=== PATIENT | male | born 1990 | race American Indian/Alaskan Native ===

== ENCOUNTER 2016-10-31 15:27 | Emergency (ER) | payer MEDICARE ==
--- NOTE | 2016-10-31 16:16 | Emergency Department Report ---
ED General Adult HPI - General Chief complaint: Headache Stated complaint: SEVERE HEADACHE Time Seen by Provider: 10/31/16 16:16 Source: patient, EMS Mode of arrival: Stretcher Limitations: No Limitations - History of Present Illness Initial comments: Patient is a 26-year-old male past medical history of end-stage renal disease on dialysis Monday and severe hypertension who presents with headache. Patient was in dialysis today and finished all of his dialysis and afterwards he had a bad headache. The headaches look in on the left side of his head he states it's an 8 out of 10 throbbing pain that radiates across his head. He denies anything making it better or worse. He states that after dialysis he was took him to the ER and brought to [facility]. Patient has no nausea no vomiting. - Related Data Home Medications Medication Instructions Recorded Confirmed Last Taken Benzonatate [Tessalon Perles] 100 mg PO BID 10/31/16 10/31/16 Unknown Cinacalcet HCl [Sensipar] 90 mg PO DAILY 10/31/16 10/31/16 Unknown Clobetasol 0.05% [Temovate] 1 applicatio TP BID 10/31/16 10/31/16 Unknown Ergocalciferol [Vitamin D2] 1 cap PO QWEEK 10/31/16 10/31/16 Unknown Folic Acid [Folvite] 1 mg PO QDAY 10/31/16 10/31/16 Unknown ISOSORBIDE MONOnitrate [Imdur ER] 60 mg PO BID 10/31/16 10/31/16 Unknown LORazepam [Ativan] 0.5 mg PO QDAY 10/31/16 10/31/16 Unknown Losartan [Cozaar] 150 mg PO QDAY 10/31/16 10/31/16 Unknown Metoprolol Succinate 200 mg PO DAILY 10/31/16 10/31/16 Unknown PARoxetine [Paxil] 10 mg PO DAILY 10/31/16 10/31/16 Unknown Pilocarpine HCl 5 mg PO TID 10/31/16 10/31/16 Unknown Renal-Primo Tablet 0.8 mg PO DAILY 10/31/16 10/31/16 10/30/16 Sucroferric Oxyhydroxide [Velphoro] 1,000 mg PO TID 10/31/16 10/31/16 Unknown amLODIPine [Norvasc] 10 mg PO DAILY 10/31/16 10/31/16 Unknown hydrALAZINE [Apresoline TAB] 100 mg PO QID 10/31/16 10/31/16 10/30/16 traZODone [Desyrel] 50 mg PO QHS 10/31/16 10/31/16 Unknown Previous Rx's Medication Instructions Recorded Last Taken Type Butalb/Acetamin/Caff 50-325-40 1 tab PO Q8HR PRN #13 tablet 10/31/16 Unknown Rx [Fioricet] Allergies Allergy/AdvReac Type Severity Reaction Status Date / Time No Known Allergies Allergy Unverified 10/31/16 15:43 ED Review of Systems ROS: Stated complaint: SEVERE HEADACHE Other details as noted in HPI Constitutional: denies: chills, fever Eyes: denies: eye pain, eye discharge, vision change ENT: denies: ear pain, throat pain Respiratory: denies: cough, shortness of breath, wheezing Cardiovascular: denies: chest pain, palpitations Endocrine: no symptoms reported Gastrointestinal: denies: abdominal pain, nausea, diarrhea Genitourinary: denies: urgency, dysuria Musculoskeletal: denies: back pain, joint swelling, arthralgia Skin: denies: rash, lesions Neurological: headache. denies: weakness, paresthesias Psychiatric: denies: anxiety, depression Hematological/Lymphatic: denies: easy bleeding, easy bruising ED Past Medical Hx - Past Medical History Previous Medical History?: Yes Hx Hypertension: Yes Additional medical history: anxiety - Surgical History Past Surgical History?: Yes Additional Surgical History: Left arm graft, hx left arm fistula - Social History Smoking Status: Former Smoker Substance Use Type: Alcohol, Prescribed - Medications Home Medications: Home Medications Medication Instructions Recorded Confirmed Last Taken Type Benzonatate [Tessalon Perles] 100 mg PO BID 10/31/16 10/31/16 Unknown History Butalb/Acetamin/Caff 50-325-40 1 tab PO Q8HR PRN #13 tablet 10/31/16 Unknown Rx [Fioricet] Cinacalcet HCl [Sensipar] 90 mg PO DAILY 10/31/16 10/31/16 Unknown History Clobetasol 0.05% [Temovate] 1 applicatio TP BID 10/31/16 10/31/16 Unknown History Ergocalciferol [Vitamin D2] 1 cap PO QWEEK 10/31/16 10/31/16 Unknown History Folic Acid [Folvite] 1 mg PO QDAY 10/31/16 10/31/16 Unknown History ISOSORBIDE MONOnitrate [Imdur ER] 60 mg PO BID 10/31/16 10/31/16 Unknown History LORazepam [Ativan] 0.5 mg PO QDAY 10/31/16 10/31/16 Unknown History Losartan [Cozaar] 150 mg PO QDAY 10/31/16 10/31/16 Unknown History Metoprolol Succinate 200 mg PO DAILY 10/31/16 10/31/16 Unknown History PARoxetine [Paxil] 10 mg PO DAILY 10/31/16 10/31/16 Unknown History Pilocarpine HCl 5 mg PO TID 10/31/16 10/31/16 Unknown History Renal-Primo Tablet 0.8 mg PO DAILY 10/31/16 10/31/16 10/30/16 History Sucroferric Oxyhydroxide [Velphoro] 1,000 mg PO TID 10/31/16 10/31/16 Unknown History amLODIPine [Norvasc] 10 mg PO DAILY 10/31/16 10/31/16 Unknown History hydrALAZINE [Apresoline TAB] 100 mg PO QID 10/31/16 10/31/16 10/30/16 History traZODone [Desyrel] 50 mg PO QHS 10/31/16 10/31/16 Unknown History ED Physical Exam - General Limitations: No Limitations General appearance: alert, in no apparent distress - Head Head exam: Present: atraumatic, normocephalic - Eye Eye exam: Present: normal appearance - ENT ENT exam: Present: mucous membranes moist - Neck Neck exam: Present: normal inspection - Respiratory Respiratory exam: Present: normal lung sounds bilaterally. Absent: respiratory distress - Cardiovascular Cardiovascular Exam: Present: regular rate, normal rhythm. Absent: systolic murmur, diastolic murmur, rubs, gallop - GI/Abdominal GI/Abdominal exam: Present: soft, normal bowel sounds - Rectal Rectal exam: Present: deferred - Extremities Exam Extremities exam: Present: other (left AV fistula) - Back Exam Back exam: Present: normal inspection - Neurological Exam Neurological exam: Present: alert, oriented X3 - Psychiatric Psychiatric exam: Present: normal affect, normal mood - Skin Skin exam: Present: warm, dry, intact, normal color. Absent: rash ED Course Vital Signs 10/31/16 10/31/16 10/31/16 15:36 15:43 15:46 Temperature 98.3 F Pulse Rate 109 H 108 H Respiratory 24 8 L Rate Blood Pressure 144/78 139/66 Blood Pressure [Right] O2 Sat by Pulse 100 100 79 L Oximetry 10/31/16 10/31/16 10/31/16 16:00 16:15 16:30 Temperature Pulse Rate 104 H 108 H 105 H Respiratory 13 18 20 Rate Blood Pressure 139/66 126/54 126/54 Blood Pressure [Right] O2 Sat by Pulse 95 99 92 Oximetry 10/31/16 10/31/16 10/31/16 16:45 17:00 17:16 Temperature Pulse Rate 110 H 108 H 101 H Respiratory 18 14 18 Rate Blood Pressure 142/41 142/41 164/95 Blood Pressure [Right] O2 Sat by Pulse 99 100 100 Oximetry 10/31/16 10/31/16 10/31/16 17:19 17:30 17:46 Temperature Pulse Rate 108 H 109 H Respiratory 20 13 17 Rate Blood Pressure 175/91 139/68 Blood Pressure [Right] O2 Sat by Pulse 100 100 100 Oximetry 10/31/16 10/31/16 10/31/16 18:00 18:05 18:16 Temperature Pulse Rate 104 H 113 H Respiratory 12 18 20 Rate Blood Pressure 139/68 124/61 Blood Pressure [Right] O2 Sat by Pulse 100 99 Oximetry 10/31/16 19:10 Temperature 98.3 F Pulse Rate 110 H Respiratory 18 Rate Blood Pressure Blood Pressure 114/69 [Right] O2 Sat by Pulse 98 Oximetry ED Medical Decision Making - Lab Data Result diagrams: 10/31/16 17:55 10/31/16 17:55 Lab Results 10/31/16 10/31/16 Range/Units 17:55 17:55 WBC 8.9 (4.5-11.0) K/mm3 RBC 3.61 L (3.65-5.03) M/mm3 Hgb 11.3 L (11.8-15.2) gm/dl Hct 33.5 L (35.5-45.6) % MCV 93 (84-94) fl MCH 31 (28-32) pg MCHC 34 (32-34) % RDW 16.8 H (13.2-15.2) % Plt Count 243 (140-440) K/mm3 Lymph % (Auto) 13.4 (13.4-35.0) % [place] % (Auto) 8.2 H (0.0-7.3) % Eos % (Auto) 5.1 H (0.0-4.3) % Baso % (Auto) 0.7 (0.0-1.8) % Lymph # 1.2 (1.2-5.4) K/mm3 [place] # 0.7 (0.0-0.8) K/mm3 Eos # 0.5 H (0.0-0.4) K/mm3 Baso # 0.1 (0.0-0.1) K/mm3 Seg Neutrophils % 72.6 H (40.0-70.0) % Seg Neutrophils # 6.5 (1.8-7.7) K/mm3 Sodium 141 (137-145) mmol/L Potassium 4.4 (3.6-5.0) mmol/L Chloride 96.2 L (98-107) mmol/L Carbon Dioxide 29 (22-30) mmol/L Anion Gap 20 mmol/L BUN 33 H (9-20) mg/dL Creatinine 9.1 H (0.8-1.5) mg/dL Estimated GFR 9 ml/min BUN/Creatinine Ratio 3.62 % Glucose 83 (75-100) mg/dL Calcium 9.7 (8.4-10.2) mg/dL - Medical Decision Making Chief medical diagnosis: Tension headache Differential medical diagnosis: Migraine headache, hyperkalemia, hypokalemia, postdialysis headache CBC, CMP, oral analgesic pain medication and will reevaluate patient Patient is feeling better after the oral analgesic pain medication and his headache has subsided. Engaged to ensure decision-making I will send patient home to follow-up with his external relations director. Additional verbal discharge instructions were given patient agrees with plan. Critical care attestation.: If time is entered above; I have spent that time in minutes in the direct care of this critically ill patient, excluding procedure time. ED Disposition Clinical Impression: ESRD (end stage renal disease), Tension headache HTN (hypertension) Qualifiers: Hypertension type: essential hypertension Qualified Code(s): I10 - Essential ( primary) hypertension Disposition: DC-01 TO HOME OR SELFCARE Is pt being admited?: No Does the pt Need Aspirin: No Condition: Stable Instructions: Tension Headache (ED), Hypertension (ED) Additional Instructions: Please follow-up with your Web Marketing Analyst. Prescriptions: Butalb/Acetamin/Caff 50-325-40 [Fioricet] 1 tab PO Q8HR PRN #13 tablet PRN Reason: Headache Referrals: PRIMARY CARE, [Primary Care Provider] - 3-5 Days
[2016-10-31] MEDS ORDERED: ATIVAN PO ONE (16:56)
[2016-10-31] MEDS ORDERED: FIORICET PO ONE (17:24)
[2016-10-31] MEDS ORDERED: PERCOCET 5/325 PO ONE (17:41)
[2016-10-31 18:09] LABS: Basophils % (Auto) 0.7 % (0.0-1.8); Eosinophils % (Auto) 5.1 % (0.0-4.3); Hematocrit 33.5 % (35.5-45.6); Hemoglobin 11.3 gm/dl (11.8-15.2); Mean Corpuscular HGB Conc 34 % (32-34); Mean Corpuscular Hemoglobin 31 pg (28-32); Mean Corpuscular Volume 93 fl (84-94); Platelet Count 243 K/mm3 (140-440); Red Blood Count 3.61 M/mm3 (3.65-5.03); Red Cell Distribution Width 16.8 % (13.2-15.2); White Blood Count 8.9 K/mm3 (4.5-11.0)
[2016-10-31 18:28] LABS: BUN/Creatinine Ratio 3.62; Calcium 9.7 mg/dL (8.4-10.2); Chloride 96.2 mmol/L (98-107); Potassium 4.4 mmol/L (3.6-5.0)
[2016-10-31 19:17] VITALS: BP 114/69
== END 2016-10-31 19:11 | disposition home or self-care (01) ==
LOC: ED 15:27
DX: G44.209 Tension-type headache, unspecified, not intractable (principal); I10 Essential (primary) hypertension; I12.0 Hypertensive chronic kidney disease with stage 5 chronic kidney disease or end stage renal disease; N18.6 End stage renal disease; Z87.891 Personal history of nicotine dependence
CPT/HCPCS: 36415; 80048; 85025; 99284

== ENCOUNTER 2018-05-02 16:19 | Inpatient (IN) | payer MEDICARE ==
--- NOTE | 2018-05-02 17:33 | Emergency Department Report ---
HPI - General Chief Complaint: Chest Pain Time Seen by Provider: 05/02/18 17:13 - HPI HPI: Room 5 The patient is a 28-year-old male presenting with a chief complaint of palpitations. The patient states he was at hemodialysis receiving this treatment when he had approximately 30 minutes left. Patient states he notices heart rate became elevated in the 150s-160s. This was persistent so the patient was taken off of hemodialysis and eventually EMS was called. EMS had the patient perform vagal maneuvers with eventual break of SVT. Patient's heart r ate normalized to the 90s after maneuvers. Patient denied ever having chest pain, shortness breath or dizziness during the palpitations. Patient states he has never been formally evaluated for SVT Location: [See above] Duration: [See above] Quality: [See above] Severity: [See above] Modifying factors: [see above] Context: [see above] Mode of transportation: [not driving] ED Past Medical Hx - Past Medical History Previous Medical History?: Yes Hx Hypertension: Yes Hx Renal Disease: Yes (ESRD. HD Q MWF) Additional medical history: anxiety - Surgical History Past Surgical History?: Yes Additional Surgical History: Left arm graft, hx left arm fistula, keloid removals, renal biopsy - Family History Family history: no significant - Social History Smoking Status: Former Smoker (none 6 years) Substance Use Type: None (denies illicit drug use), Alcohol (occasional) - Medications Home Medications: Home Medications Medication Instructions Recorded Confirmed Last Taken Type Benzonatate [Tessalon Perles] 100 mg PO BID 10/31/16 10/31/16 Unknown History Butalb/Acetamin/Caff 50-325-40 1 tab PO Q8HR PRN #13 tablet 10/31/16 Unknown Rx [Fioricet] Cinacalcet HCl [Sensipar] 90 mg PO DAILY 10/31/16 10/31/16 Unknown History Clobetasol 0.05% [Temovate] 1 applicatio TP BID 10/31/16 10/31/16 Unknown History Ergocalciferol [Vitamin D2] 1 cap PO QWEEK 10/31/16 10/31/16 Unknown History Folic Acid [Folvite] 1 mg PO QDAY 10/31/16 10/31/16 Unknown History ISOSORBIDE MONOnitrate [Imdur ER] 60 mg PO BID 10/31/16 10/31/16 Unknown History LORazepam [Ativan] 0.5 mg PO QDAY 10/31/16 10/31/16 Unknown History Losartan [Cozaar] 150 mg PO QDAY 10/31/16 10/31/16 Unknown History Metoprolol Succinate 200 mg PO DAILY 10/31/16 10/31/16 Unknown History PARoxetine [Paxil] 10 mg PO DAILY 10/31/16 10/31/16 Unknown History Pilocarpine HCl 5 mg PO TID 10/31/16 10/31/16 Unknown History Renal-Primo Tablet 0.8 mg PO DAILY 10/31/16 10/31/16 10/30/16 History Sucroferric Oxyhydroxide(Nf) 1,000 mg PO TID 10/31/16 10/31/16 Unknown History [Velphoro] amLODIPine [Norvasc] 10 mg PO DAILY 10/31/16 10/31/16 Unknown History hydrALAZINE [Apresoline TAB] 100 mg PO QID 10/31/16 10/31/16 10/30/16 History traZODone [Desyrel] 50 mg PO QHS 10/31/16 10/31/16 Unknown History ED Review of Systems ROS: Stated complaint: FAST HEART BEAT Other details as noted in HPI Constitutional: no symptoms reported Eyes: denies: eye pain ENT: denies: throat pain Respiratory: denies: shortness of breath Cardiovascular: palpitations. denies: chest pain Endocrine: no symptoms reported Gastrointestinal: denies: abdominal pain Genitourinary: denies: testicular pain Musculoskeletal: denies: back pain Neurological: denies: headache Physical Exam - Physical Exam Vital Signs: Vital Signs 05/02/18 16:27 Temperature 98.8 F Pulse Rate 105 H Respiratory 18 Rate Blood Pressure 163/98 O2 Sat by Pulse 100 Oximetry Physical Exam: GENERAL: The patient is well-developed well-nourished male lying on stretcher not appearing to be in acute distress. [] HEENT: Normocephalic. Atraumatic. Extraocular motions are intact. Patient has moist mucous membranes. NECK: Supple. Trachea midline CHEST/LUNGS: Clear to auscultation. There is no respiratory distress noted. HEART/CARDIOVASCULAR: Regular. There is no tachycardia. There is no gallop rub or murmur. ABDOMEN: Abdomen is soft, nontender. Patient has normal bowel sounds. There is no abdominal distention. SKIN: There is no rash. There is no edema. There is no diaphoresis. NEURO: The patient is awake, alert, and oriented. The patient is cooperative. The patient has normal speech MUSCULOSKELETAL: There is no evidence of acute injury. ED Course Vital Signs 05/02/18 16:27 Temperature 98.8 F Pulse Rate 105 H Respiratory 18 Rate Blood Pressure 163/98 O2 Sat by Pulse 100 Oximetry ED Medical Decision Making - Lab Data Result diagrams: 05/02/18 17:33 05/02/18 17:33 Laboratory Tests 05/02/18 05/02/18 05/02/18 17:33 17:33 17:33 WBC 8.9 RBC 3.85 Hgb 12.3 Hct 37.4 MCV 97 H MCH 32 MCHC 33 RDW 19.1 H Plt Count 252 Lymph % (Auto) 15.0 [place] % (Auto) 8.6 H Eos % (Auto) 3.5 Baso % (Auto) 0.7 Lymph # 1.3 [place] # 0.8 Eos # 0.3 Baso # 0.1 Seg Neutrophils % 72.2 H Seg Neutrophils # 6.4 Sodium 137 Potassium 4.4 Chloride 92.9 L Carbon Dioxide 29 Anion Gap 20 BUN 26 H Creatinine 8.0 H Estimated GFR 10 BUN/Creatinine Ratio 3 Glucose 83 Calcium 9.0 Magnesium 2.20 Troponin T 0.059 H TSH 1.300 Free T4 1.32 - EKG Data -: EKG Interpreted by Me EKG shows normal: sinus rhythm Rate: normal - EKG Data When compared to previous EKG there are: previous EKG unavailable Interpretation: nonspecific ST-T wave rakel (T-wave inversion in lead aVL) - Radiology Data Radiology results: report reviewed (chest x-ray), image reviewed (chest x-ray) interpreted by me: Chest x-ray-no focal infiltrates, no pneumothorax [facility] [address] [place] [address] XRay Report Signed Patient: SHAYE ZHANG MR#: [id number] : 1990 Acct:[id number] Age/Sex: 28 / M ADM Date: 05/02/18 Loc: ED Attending Dr: Ordering Physician: WELLINGTON FRANKS MD Date of Service: 05/02/18 Procedure(s): XR chest 1V ap Accession Number(s): [id number] cc: WELLINGTON FRANKS MD Fluoro Time In Minutes: PROCEDURE: XR CHEST 1V AP HISTORY: palpitations FINDINGS: Single frontal view of the chest was acquired and demonstrates the presence of cardiomegaly. There is no evidence of congestive heart failure. There is no consolidative infiltrate. IMPRESSION: Cardiomegaly This document is electronically signed by Jatinder Joseph MD., May 02 2018 06:23:45 PM ET Transcribed By: ROD Dictated By: JATINDER JOSEPH MD Electronically Authenticated By: JATINDER JOSEPH MD Signed Date/Time: 05/02/181825 DD/ 57 TD/TT: 05/02/181757 - Differential Diagnosis SVT Critical care attestation.: If time is entered above; I have spent that time in minutes in the direct care o f this critically ill patient, excluding procedure time. ED Disposition Clinical Impression: SVT (supraventricular tachycardia) Disposition: -09 OP ADMIT IP TO THIS HOSP Is pt being admited?: Yes Does the pt Need Aspirin: Yes Condition: Fair [facility] [Primary Care Provider] - 3-5 Days Time of Disposition: 18:51 (hospitalist paged (Dr Arreola))
[2018-05-02 17:58] LABS: Basophils # (Auto) 0.1 K/mm3 (0.0-0.1); Basophils % (Auto) 0.7 % (0.0-1.8); Eosinophils # (Auto) 0.3 K/mm3 (0.0-0.4); Eosinophils % (Auto) 3.5 % (0.0-4.3); Hematocrit 37.4 % (35.5-45.6); Hemoglobin 12.3 gm/dl (11.8-15.2); Lymphocytes # (Auto) 1.3 K/mm3 (1.2-5.4); Mean Corpuscular HGB Conc 33 % (32-34); Mean Corpuscular Volume 97 fl (84-94); Monocytes # (Auto) 0.8 K/mm3 (0.0-0.8); Monocytes % (Auto) 8.6 % (0.0-7.3); Platelet Count 252 K/mm3 (140-440); Red Blood Count 3.85 M/mm3 (3.65-5.03); Red Cell Distribution Width 19.1 % (13.2-15.2)
[2018-05-02 18:22] LABS: Free T4 (Free Thyroxine) 1.32 ng/dL (0.76-1.46)
--- NOTE | 2018-05-02 18:26 | XRay Report ---
PROCEDURE: XR CHEST 1V AP HISTORY: palpitations FINDINGS: Single frontal view of the chest was acquired and demonstrates the presence of cardiomegaly . There is no evidence of congestive heart failure. There is no consolidative infiltrate. IMPRESSION: Cardiomegaly This document is electronically signed by Jatinder Joseph MD., May 02 2018 06:23:45 PM ET
[2018-05-02 19:10] LABS: Chol/HDL Ratio 4.31 %
[2018-05-02] MEDS ORDERED: PILOCARPINE HCL 5 MG PO PRN (22:43)
--- NOTE | 2018-05-02 22:43 | History and Physical Report ---
History of Present Illness Date of examination: 05/02/18 Date of admission: 05/02/18 19:28 Chief complaint: Palpitations during Dialysis History of present illness: The patient is a 28-year-old male presenting with a chief complaint of palpitations. The patient states he was at hemodialysis receiving this treatment when he had approximately 30 minutes left. Patient states he notices heart rate became elevated in the 150s-160s. This was persistent so the patient was taken off of hemodialysis and eventually EMS was called. EMS had the patient perform vagal maneuvers with eventual break of SVT. Patient's heart rate normalized to the 90s after maneuvers. Patient denied ever having chest pain, shortness breath or dizziness during the palpitations. Patient states he has never been formally evaluated for SVT Past Medical History Previous Medical History?: Yes Hx Hypertension: Yes Hx Renal Disease: Yes (ESRD. HD Q MWF) Additional medical history: anxiety Surgical History Past Surgical History?: Yes Additional Surgical History: Left arm graft, hx left arm fistula, keloid removals, renal biopsy Family History Family history: no significant Social History Smoking Status: Former Smoker (none 6 years) Substance Use Type: None (denies illicit drug use), Alcohol (occasional) Review of Systems ROS: Stated complaint: FAST HEART BEAT Other details as noted in HPI Constitutional: no symptoms reported Eyes: denies: eye pain ENT: denies: throat pain Respiratory: denies: shortness of breath Cardiovascular: palpitations. denies: chest pain Endocrine: no symptoms reported Gastrointestinal: denies: abdominal pain Genitourinary: denies: testicular pain Musculoskeletal: denies: back pain Neurological: denies: headache Medications and Allergies Allergies Allergy/AdvReac Type Severity Reaction Status Date / Time No Known Allergies Allergy Verified 05/02/18 16:31 Home Medications Medication Instructions Recorded Confirmed Last Taken Type Benzonatate [Tessalon Perles] 100 mg PO BID 10/31/16 05/02/18 05/02/18 History Ergocalciferol [Vitamin D2] 1 cap PO QWEEK 10/31/16 05/02/18 05/02/18 History ISOSORBIDE MONOnitrate [Imdur ER] 60 mg PO BID 10/31/16 05/02/18 05/02/18 Hist ory PARoxetine [Paxil] 10 mg PO QHS 10/31/16 05/02/1819 History Pilocarpine HCl 5 mg PO TID PRN 10/31/16 05/02/18 05/02/18 History amLODIPine [Norvasc] 10 mg PO QHS 10/31/16 05/02/18 05/02/18 History hydrALAZINE [Apresoline TAB] 100 mg PO BID 10/31/16 05/02/18 05/02/18 History Ferric Citrate (Nf) [Auryxia (Nf)] 210 mg PO QID 05/02/18 05/02/18 05/02/18 History Losartan Potassium 100 mg PO DAILY 05/02/18 05/02/18 05/02/18 History Minoxidil [Loniten] 10 mg PO BID 05/02/18 05/02/18 05/02/18 History Sevelamer Carbonate [Renvela] 3 tab PO QID 05/02/18 05/02/18 04/25/18 History Metoprolol SUCCINATE ER TAB 200 mg PO QHS 05/03/18 05/03/18 04/30/18 History Exam - Constitutional Vitals: Temp Pulse Resp BP Pulse Ox 98.8 F 102 H 19 177/89 96 05/02/18 16:27 05/02/18 19:31 05/02/18 19:31 05/02/18 19:31 05/02/18 19:31 General appearance: Present: no acute distress, well-nourished - EENT Eyes: Present: PERRL ENT: hearing intact, clear oral mucosa - Neck Neck: Present: supple, normal ROM - Respiratory Respiratory effort: normal Respiratory: bilateral: CTA - Cardiovascular Heart Sounds: Present: S1 & S2. Absent: rub, click - Extremities Extremities: pulses symmetrical, No edema Peripheral Pulses: within normal limits - Abdominal General gastrointestinal: Present: soft, non-tender, non-distended, normal bowel sounds Male genitourinary: Present: normal - Integumentary Integumentary: Present: clear, warm, dry - Musculoskeletal Musculoskeletal: gait normal, strength equal bilaterally - Psychiatric Psychiatric: appropriate mood/affect, intact judgment & insight - Neurologic Neurologic: CNII-XII intact, moves all extremities Results - Labs CBC & Chem 7: 05/03/18 04:46 05/03/18 04:46 Labs: Laboratory Last Values WBC 8.9 K/mm3 (4.5-11.0) 05/02/18 17:33 RBC 3.85 M/mm3 (3.65-5.03) 05/02/18 17:33 Hgb 12.3 gm/dl (11.8-15.2) 05/02/18 17:33 Hct 37.4 % (35.5-45.6) 05/02/18 17:33 MCV 97 fl (84-94) H 05/02/18 17:33 MCH 32 pg (28-32) 05/02/18 17:33 MCHC 33 % (32-34) 05/02/18 17:33 RDW 19.1 % (13.2-15.2) H 05/02/18 17:33 Plt Count 252 K/mm3 (140-440) 05/02/18 17:33 Lymph % (Auto) 15.0 % (13.4-35.0) 05/02/18 17:33 [place] % (Auto) 8.6 % (0.0-7.3) H 05/02/18 17:33 Eos % (Auto) 3.5 % (0.0-4.3) 05/02/18 17:33 Baso % (Auto) 0.7 % (0.0-1.8) 05/02/18 17:33 Lymph # 1.3 K/mm3 (1.2-5.4) 05/02/18 17:33 [place] # 0.8 K/mm3 (0.0-0.8) 05/02/18 17:33 Eos # 0.3 K/mm3 (0.0-0.4) 05/02/18 17:33 Baso # 0.1 K/mm3 (0.0-0.1) 05/02/18 17:33 Seg Neutrophils % 72.2 % (40.0-70.0) H 05/02/18 17:33 Seg Neutrophils # 6.4 K/mm3 (1.8-7.7) 05/02/18 17:33 Sodium 137 mmol/L (137-145) 05/02/18 17:33 Potassium 4.4 mmol/L (3.6-5.0) 05/02/18 17:33 Chloride 92.9 mmol/L (98-107) L 05/02/18 17:33 Carbon Dioxide 29 mmol/L (22-30) 05/02/18 17:33 Anion Gap 20 mmol/L 05/02/18 17:33 BUN 26 mg/dL (9-20) H 05/02/18 17:33 Creatinine 8.0 mg/dL (0.8-1.5) H 05/02/18 17:33 Estimated GFR 10 ml/min 05/02/18 17:33 BUN/Creatinine Ratio 3 % 05/02/18 17:33 Glucose 83 mg/dL (75-100) 05/02/18 17:33 Calcium 9.0 mg/dL (8.4-10.2) 05/02/18 17:33 Magnesium 2.20 mg/dL (1.7-2.3) 05/02/18 17:33 Troponin T 0.059 ng/mL (0.00-0.029) H 05/02/18 17:33 Triglycerides 119 mg/dL (2-149) 05/02/18 17:33 Cholesterol 194 mg/dL (50-199) 05/02/18 17:33 LDL Cholesterol Direct 142 mg/dL (50-130) H 05/02/18 17:33 HDL Cholesterol 45 mg/dL (40-59) 05/02/18 17:33 Cholesterol/HDL Ratio 4.31 % 05/02/18 17:33 TSH 1.300 mlU/mL (0.270-4.200) 05/02/18 17:33 Free T4 1.32 ng/dL (0.76-1.46) 05/02/18 17:33 Short CBC 05/02/18 05/03/18 Range/Units 17:33 04:46 WBC 8.9 8.0 (4.5-11.0) K/mm3 Hgb 12.3 12.7 (11.8-15.2) gm/dl Hct 37.4 39.1 (35.5-45.6) % Plt Count 252 238 (140-440) K/mm3 BMP 05/02/18 05/03/18 17:33 04:46 Sodium 137 141 Potassium 4.4 5.8 H D Chloride 92.9 L 94.2 L Carbon Dioxide 29 29 BUN 26 H 38 H Creatinine 8.0 H 10.2 H Glucose 83 78 Calcium 9.0 8.5 Cardiac Enzymes 05/02/18 Range/Units 17:33 Troponin T 0.059 H (0.00-0.029) ng/mL Liver Function 05/03/18 Range/Units 04:46 Total Bilirubin 0.30 (0.1-1.2) mg/dL AST 13 (5-40) units/L ALT 11 (7-56) units/L Alkaline Phosphatase 85 (35-129) units/L Albumin 3.9 (3.9-5) g/dL - Imaging and Cardiology EKG: report reviewed (SVT on EMS strips,EKG in ER Sinus tach HR of 104) Chest x-ray: report reviewed (NAF) Assessment and Plan Advance Directives: Yes (Full code) VTE prophylaxis?: Chemical Plan of care discussed with patient/family: Yes - Patient Problems (1) SVT (supraventricular tachycardia) Current Visit: Yes Status: Acute Plan to address problem: Resolved with vagal maneuvers Willrequest cardiology consult May candice low dose cardizembeta blockers Will defer to cardiology (2) ESRD on hemodialysis Current Visit: Yes Status: Chronic Plan to address problem: Nephrology consult requested Due for HD on Monday Had one on Monday-day of admission (3) HTN (hypertension) Current Visit: Yes Status: Chronic Qualifiers: Hypertension type: essential hypertension Qualified Code(s): I10 - Essential (primary) hypertension Plan to address problem: Cont antihypertensives (4) DVT prophylaxis Current Visit: Yes Status: Acute Plan to address problem: On Lovenox and GI prophlaxis
[2018-05-02] MEDS ORDERED: ZOFRAN IV PRN (22:44)
[2018-05-02] MEDS ORDERED: DILAUDID IV PRN (22:44)
[2018-05-02] MEDS ORDERED: TYLENOL PO PRN (22:44)
[2018-05-02] MEDS ORDERED: PERCOCET 5/325 PO PRN (22:44)
[2018-05-02] MEDS ORDERED: SODIUM CHLORIDE FLUSH SYRINGE 10 ML IV PRN (22:44)
[2018-05-02] MEDS: LONITEN PO SCH (23:50)
[2018-05-02] MEDS: HEPARIN SUB-Q SCH (23:50)
[2018-05-02] MEDS: PEPCID PO SCH (23:50)
[2018-05-02] MEDS: APRESOLINE PO SCH (23:50)
[2018-05-03 06:13] LABS: Basophils # (Auto) 0.1 K/mm3 (0.0-0.1); Basophils % (Auto) 0.8 % (0.0-1.8); Eosinophils # (Auto) 0.4 K/mm3 (0.0-0.4); Eosinophils % (Auto) 5.1 % (0.0-4.3); Hematocrit 39.1 % (35.5-45.6); Hemoglobin 12.7 gm/dl (11.8-15.2); Lymphocytes # (Auto) 1.2 K/mm3 (1.2-5.4); Lymphocytes % (Auto) 15.5 % (13.4-35.0); Mean Corpuscular HGB Conc 33 % (32-34); Mean Corpuscular Volume 99 fl (84-94); Monocytes # (Auto) 0.7 K/mm3 (0.0-0.8); Monocytes % (Auto) 8.5 % (0.0-7.3); Platelet Count 238 K/mm3 (140-440); Red Blood Count 3.97 M/mm3 (3.65-5.03); Red Cell Distribution Width 19.6 % (13.2-15.2)
[2018-05-03 06:40] LABS: Albumin 3.9 g/dL (3.9-5); Calcium 8.5 mg/dL (8.4-10.2)
[2018-05-03] MEDS: RENVELA PO SCH ×2 (08:37→12:57)
--- NOTE | 2018-05-03 09:48 | Consultation ---
History of Present Illness - Reason for Consult Consult date: 05/03/18 end stage renal disease, hyperkalemia - History of Present Illness This is a 28 year old male who presents to the E.R yesterday with a chief complaint of having elevated heart rate in the 150's during the last 30 minutes into his hemodialysis treatment. Patient states he still completed his hemodialysis treatment. Patient has history of Hypertension and ESRD and is being followed by Dr. Mariscal ant [facility]. On hemodialysis for 8 years now and has a left AVG. Today his potassium level is noted to be 5.8. We are being consulted for management of this patient's ESRD. Past History Past Medical History: anemia, dialysis, ESRD, hypertension, renal failure. denies: acute PA, atrial fib, arrhythmia Past Surgical History: Other (Left AVG placement) Social history: no significant social history Family history: no significant family history Medications and Allergies Allergies Allergy/AdvReac Type Severity Reaction Status Date / Time No Known Allergies Allergy Verified 05/02/18 16:31 Home Medications Medication Instructions Recorded Confirmed Last Taken Type Benzonatate [Tessalon Perles] 100 mg PO BID 10/31/16 05/02/18 05/02/18 History Ergocalciferol [Vitamin D2] 1 cap PO QWEEK 10/31/16 05/02/18 05/02/18 History ISOSORBIDE MONOnitrate [Imdur ER] 60 mg PO BID 10/31/16 05/02/18 05/02/18 History PARoxetine [Paxil] 10 mg PO QHS 10/31/16 05/02/18 05/02/18 History Pilocarpine HCl 5 mg PO TID PRN 10/31/16 05/02/18 05/02/18 History amLODIPine [Norvasc] 10 mg PO QHS 10/31/16 05/02/18 05/02/18 History hydrALAZINE [Apresoline TAB] 100 mg PO BID 10/31/16 05/02/18 05/02/18 History Ferric Citrate (Nf) [Auryxia (Nf)] 210 mg PO QID 05/02/18 05/02/18 05/02/18 History Losartan Potassium 100 mg PO DAILY 05/02/18 05/02/18 05/02/18 History Minoxidil [Loniten] 10 mg PO BID 05/02/18 05/02/18 05/02/18 History Sevelamer Carbonate [Renvela] 3 tab PO QID 05/02/18 05/02/18 04/25/18 History Metoprolol SUCCINATE ER TAB 200 mg PO QHS 05/03/18 05/03/18 04/30/18 History Active Meds: Active Medications Acetaminophen (Tylenol) 650 mg PO Q4H PRN PRN Reason: Pain MILD(1-3)/Fever >100.5/[place] Amlodipine Besylate (Norvasc) 10 mg PO QHS [facility] Famotidine (Pepcid) 10 mg PO BID [facility] Last Admin: 05/02/18 23:50 Dose: 10 mg Documented by: Heparin Sodium (Porcine) (Heparin) 5,000 unit SUB-Q Q12HR [facility] Last Admin: 05/02/18 23:50 Dose: Not Given Documented by: Hydralazine HCl (Apresoline) 100 mg PO BID [facility] Last Admin: 05/02/18 23:50 Dose: 100 mg Documented by: Hydromorphone HCl (Dilaudid) 0.5 mg IV Q3H PRN PRN Reason: Pain , Severe (7-10) Isosorbide Mononitrate (Imdur) 60 mg PO BID [facility] Losartan Potassium (Cozaar) 100 mg PO DAILY [facility] Minoxidil (Loniten) 10 mg PO BID [facility] Last Admin: 05/02/18 23:50 Dose: 10 mg Documented by: Miscellaneous Medication (Pilocarpine Hcl [Pilocarpine Hcl]) 5 mg PO TID PRN PRN Reason: Dry Mouth Miscellaneous Medication (Metoprolol Succinate Er Tab) 200 mg PO QHS [facility] Ondansetron HCl (Zofran) 4 mg IV Q8H PRN PRN Reason: Nausea And Vomiting Oxycodone/Acetaminophen (Percocet 5/325) 1 tab PO Q6H PRN PRN Reason: Pain, Moderate (4-6) Paroxetine HCl (Paxil) 10 mg PO QHS [facility] Sevelamer Carbonate (Renvela) 2,400 mg PO 0730,1130,1730,2200 [facility] Last Admin: 05/03/18 08:37 Dose: 2,400 mg Documented by: Sodium Chloride (Sodium Chloride Flush Syringe 10 Ml) 10 ml IV BID [facility] Sodium Chloride (Sodium Chloride Flush Syringe 10 Ml) 10 ml IV PRN PRN PRN Reason: LINE FLUSH Review of Systems Constitutional: no weight loss, no weight gain, no fever, no chills Ears, nose, mouth and throat: no ear pain, no ear discharge, no tinnitis, no de creased hearing Cardiovascular: palpitations, rapid/irregular heart beat, no chest pain, no orthopnea Respiratory: no cough with sputum, no excessive sputum, no shortness of breath, no dyspnea on exertion Gastrointestinal: no abdominal pain, no nausea, no vomiting, no diarrhea, no constipation Rectal: no pain, no incontinence, no bleeding Musculoskeletal: no neck stiffness, no neck pain, no shooting arm pain, no arm numbness/tingling, no low back pain, no shooting leg pain Integumentary: no rash, no pruritis, no redness, no sores, no wounds, no jaundice Neurological: no head injury, no transient paralysis, no paralysis, no weakness, no parathesias, no numbness, no tingling Psychiatric: no anxiety, no memory loss, no change in sleep habits, no sleep disturbances, no insomnia, no hypersomnia Endocrine: no cold intolerance, no heat intolerance, no polyphagia, no excessive thirst, no polydipsia, no polyuria Hematologic/Lymphatic: no easy bruising, no easy bleeding, no lymphadenopathy, no lymphedema Exam - Vital Signs Vital signs: Vital Signs Temp Pulse Resp BP Pulse Ox 98.8 F 105 H 18 163/98 100 05/02/18 16:27 05/02/18 16:27 05/02/18 16:27 05/02/18 16:27 05/02/18 16:27 - General Appearance General appearance: well-developed, obese, fatigue EENT: ATNC, PERRL, hearing intact, vision intact Neck: Present: neck supple, trachea midline Respiratory: Clear to Ascultation Heart: regular, S1S2 Gastrointestinal: Present: normoactive bowel sounds Integumentary: warm and dry Neurologic: alert and oriented x3 Musculoskeletal: Present: other (No edema) Psychiatric: cooperative Results - Lab Results 05/03/18 04:46 05/03/18 04:46 Most recent lab results Calcium 8.5 mg/dL (8.4-10.2) 05/03/18 04:46 Magnesium 2.20 mg/dL (1.7-2.3) 05/02/18 17:33 Assessment and Plan End Stage Renal Disease on hemodialysis: Hyperkalemia: -Hemodialysis today for UF and clearance -Fluid restriction of 1 liter per day -Renal diet -Obtain daily weights -Monitor I/O's -Assess dialysis needs daily SVT (supraventricular tachycardia) -Cardiology consulted Hypertension: -Continue on antihypertensive agents -Adjust regimen as needed
[2018-05-03] MEDS ORDERED: SODIUM CHLORIDE FLUSH SYRINGE 10 ML IV SCH (10:00)
[2018-05-03] MEDS: COZAAR PO SCH ×2 (10:08→15:45)
[2018-05-03] MEDS: APRESOLINE PO SCH ×2 (10:08→15:45)
[2018-05-03] MEDS: IMDUR PO SCH ×2 (10:09→15:45)
[2018-05-03] MEDS: LONITEN PO SCH ×2 (10:10→15:46)
[2018-05-03] MEDS: PEPCID PO SCH (10:11)
[2018-05-03] MEDS: HEPARIN SUB-Q SCH (10:12)
[2018-05-03 13:47] LABS: Hepatitis C Virus Antibody Non-Reactive (NonReactive)
[2018-05-03] MEDS ORDERED: NACL 0.9 (PRIMING MACHINE ONLY DIALYSIS) MC ONE (14:02)
--- NOTE | 2018-05-03 14:25 | Consultation ---
History of Present Illness Consult date: 05/03/18 Requesting physician: ELLIE GONZALES Consult reason: other (svt) History of present illness: The pt is a 28 year old male with past medical history of HF, CMP with now normalized EF, HTN and ESRD on HD. He is previously unknown to our practice. He states that he sees a asthma educator at [place] on occasion. He presented to ED yesterday with c/o palpitations and tachycardia noted during the last 30 minutes of hemodialysis treatment. Pt states that his HR was noted to be between 150s - 190s by dialysis staff and thus EMS was called. While waiting for EMS to arrive, pt performed some vagal maneuvers and states that his HR improved to 90s. Some strips on his chart reveal apparent sinus tachycardia, unclear if pt had SVT. He has been in SR since admission. Echo done 02/2017 showed EF 58%, RV mildly dilated, LA severely dilated, mild MR, mild TR. Past History Past Medical History: dialysis, ESRD, heart failure, hypertension Past Surgical History: Other (Left AVG placement) Social history: no significant social history Family history: no significant family history Medications and Allergies Allergies Allergy/AdvReac Type Severity Reaction Status Date / Time No Known Allergies Allergy Verified 05/02/18 16:31 Home Medications Medication Instructions Recorded Confirmed Last Taken Type Benzonatate [Tessalon Perles] 100 mg PO BID 10/31/16 05/02/18 05/02/18 History Ergocalciferol [Vitamin D2] 1 cap PO QWEEK 10/31/16 05/02/18 05/02/18 History ISOSORBIDE MONOnitrate [Imdur ER] 60 mg PO BID 10/31/16 05/02/18 05/02/18 History PARoxetine [Paxil] 10 mg PO QHS 10/31/16 05/02/18 05/02/18 History Pilocarpine HCl 5 mg PO TID PRN 10/31/16 05/02/18 05/02/18 History amLODIPine [Norvasc] 10 mg PO QHS 10/31/16 05/02/18 05/02/18 History hydrALAZINE [Apresoline TAB] 100 mg PO BID 10/31/16 05/02/18 05/02/18 History Ferric Citrate (Nf) [Auryxia (Nf)] 210 mg PO QID 05/02/18 05/02/18 05/02/18 History Losartan Potassium 100 mg PO DAILY 05/02/18 05/02/18 05/02/18 History Minoxidil [Loniten] 10 mg PO BID 05/02/18 05/02/18 05/02/18 History Sevelamer Carbonate [Renvela] 3 tab PO QID 05/02/18 05/02/18 04/25/18 History Metoprolol SUCCINATE ER TAB 200 mg PO QHS 05/03/18 05/03/18 04/30/18 History Active Meds: Active Medications Acetaminophen (Tylenol) 650 mg PO Q4H PRN PRN Reason: Pain MILD(1-3)/Fever >100.5/[place] Amlodipine Besylate (Norvasc) 10 mg PO QHS [facility] Famotidine (Pepcid) 10 mg PO BID [facility] Last Admin: 05/03/18 10:11 Dose: 10 mg Documented by: Heparin Sodium (Porcine) (Heparin) 5,000 unit SUB-Q Q12HR [facility] Last Admin: 05/03/18 10:12 Dose: 5,000 unit Documented by: Hydralazine HCl (Apresoline) 100 mg PO BID [facility] Last Admin: 05/03/18 10:08 Dose: Not Given Documented by: Hydromorphone HCl (Dilaudid) 0.5 mg IV Q3H PRN PRN Reason: Pain , Severe (7-10) Isosorbide Mononitrate (Imdur) 60 mg PO BID [facility] Last Admin: 05/03/18 10:09 Dose: Not Given Documented by: Losartan Potassium (Cozaar) 100 mg PO DAILY [facility] Last Admin: 05/03/18 10:08 Dose: Not Given Documented by: Metoprolol Succinate (Toprol Xl) 200 mg PO QHS [facility] Minoxidil (Loniten) 10 mg PO BID [facility] Last Admin: 05/03/18 10:10 Dose: Not Given Documented by: Miscellaneous Medication (Pilocarpine Hcl [Pilocarpine Hcl]) 5 mg PO TID PRN PRN Reason: Dry Mouth Ondansetron HCl (Zofran) 4 mg IV Q8H PRN PRN Reason: Nausea And Vomiting Oxycodone/Acetaminophen (Percocet 5/325) 1 tab PO Q6H PRN PRN Reason: Pain, Moderate (4-6) Paroxetine HCl (Paxil) 10 mg PO QHS [facility] Sevelamer Carbonate (Renvela) 2,400 mg PO 0730,1130,1730,2200 [facility] Last Admin: 05/03/18 12:57 Dose: Not Given Documented by: Sodium Chloride (Sodium Chloride Flush Syringe 10 Ml) 10 ml IV BID [facility] Last Admin: 05/03/18 10:11 Dose: 10 ml Documented by: Sodium Chloride (Sodium Chloride Flush Syringe 10 Ml) 10 ml IV PRN PRN PRN Reason: LINE FLUSH Review of Systems Constitutional: no weight loss, no weight gain, no fever, no chills, no sweats Ears, nose, mouth and throat: no ear pain, no nose pain, no sinus pressure, no sinus pain Cardiovascular: palpitations, rapid/irregular heart beat, no chest pain, no orthopnea, no edema, no syncope, no lightheadedness, no shortness of breath, no dyspnea on exertion Respiratory: no cough, no shortness of breath, no dyspnea on exertion, no congestion, no wheezing, no pain on inspiration Gastrointestinal: no abdominal pain, no nausea, no vomiting, no diarrhea, no constipation, no change in bowel habits Genitourinary Male: no dysuria, no hematuria, no flank pain, no discharge, no urinary frequency, no urinary hesitancy Musculoskeletal: no neck stiffness, no neck pain, no shooting arm pain, no arm numbness/tingling, no low back pain, no shooting leg pain Integumentary: no rash, no pruritis, no redness, no sores, no wounds Neurological: no head injury, no paralysis, no weakness, no parathesias, no numbness, no tingling, no seizures, no syncope Psychiatric: no anxiety Endocrine: no cold intolerance, no heat intolerance Hematologic/Lymphatic: no easy bruising, no easy bleeding Allergic/Immunologic: no urticaria, no wheezing Physical Examination Vital Signs Temp Pulse Resp BP Pulse Ox 98.8 F 105 H 18 163/98 100 05/02/18 16:27 05/02/18 16:27 05/02/18 16:27 05/02/18 16:27 05/02/18 16:27 General appearance: no acute distress HEENT: Positive: PERRL, Normocephaly, Mucus Membranes Moist Neck: Positive: neck supple, trachea midline Cardiac: Positive: Reg Rate and Rhythm, S1/S2 Lungs: Positive: clear to auscultation Neuro: Positive: Grossly Intact Abdomen: Positive: Soft. Negative: Tender Male genitourinary: Negative: tender Skin: Negative: Rash, Wound Musculoskeletal: No Pain Extremities: Present: edema (trace BLE) Results 05/03/18 04:46 05/03/18 04:46 Cardiac Enzymes 05/03/18 Range/Units 04:46 AST 13 (5-40) units/L Lipids 05/02/18 Range/Units 17:33 Triglycerides 119 (2-149) mg/dL Cholesterol 194 (50-199) mg/dL HDL Cholesterol 45 (40-59) mg/dL Cholesterol/HDL Ratio 4.31 % CBC 05/02/18 05/03/18 Range/Units 17:33 04:46 WBC 8.9 8.0 (4.5-11.0) K/mm3 RBC 3.85 3.97 (3.65-5.03) M/mm3 Hgb 12.3 12.7 (11.8-15.2) gm/dl Hct 37.4 39.1 (35.5-45.6) % Plt Count 252 238 (140-440) K/mm3 Lymph # 1.3 1.2 (1.2-5.4) K/mm3 [place] # 0.8 0.7 (0.0-0.8) K/mm3 Eos # 0.3 0.4 (0.0-0.4) K/mm3 Baso # 0.1 0.1 (0.0-0.1) K/mm3 Comprehensive Metabolic Panel 05/02/18 05/03/18 Range/Units 17:33 04:46 Sodium 137 141 (137-145) mmol/L Potassium 4.4 5.8 H D (3.6-5.0) mmol/L Chloride 92.9 L 94.2 L (98-107) mmol/L Carbon Dioxide 29 29 (22-30) mmol/L BUN 26 H 38 H (9-20) mg/dL Creatinine 8.0 H 10.2 H (0.8-1.5) mg/dL Glucose 83 78 (75-100) mg/dL Calcium 9.0 8.5 (8.4-10.2) mg/dL AST 13 (5-40) units/L ALT 11 (7-56) units/L Alkaline Phosphatase 85 (35-129) units/L Total Protein 7.5 (6.3-8.2) g/dL Albumin 3.9 (3.9-5) g/dL - Imaging and Cardiology Echo: pending, report reviewed (02/2017 showed EF 58%, RV mildly dilated, LA severely dilated, mild MR, mild TR. ) EKG: report reviewed, image reviewed EKG interpretations - Telemetry EKG Rhythm: Sinus Rhythm - EKG Sinus rhythms and dysrhythmias: sinus rhythm Assessment and Plan Pt presented to ED yesterday with c/o palpitations and tachycardia noted during the last 30 minutes of hemodialysis treatment. Pt states that his HR was noted to be between 150s - 190s by dialysis staff and thus EMS was called. While waiting for EMS to arrive, pt performed some vagal maneuvers and states that his HR improved to 90s. Some strips on his chart reveal apparent sinus tachycardia, unclear if pt had SVT. He has been in SR since admission. Decrease toprol and d/c home norvasc and initiate cardizem. Thyroid profile WNL. F/u echo. The patient has been seen in conjunction with Dr. Mayur Francis who agrees with the assessment and plan of care. - Patient Problems (1) Tachycardia Current Visit: Yes Status: Acute (2) ESRD on hemodialysis Current Visit: Yes Status: Chronic (3) HTN (hypertension) Current Visit: Yes Status: Chronic Qualifiers: Hypertension type: essential hypertension Qualified Code(s): I10 - Essential (primary) hypertension (4) History of cardiomyopathy Current Visit: Yes Status: Chronic
[2018-05-03] MEDS ORDERED: CARDIZEM PO SCH (15:00)
--- NOTE | 2018-05-03 15:52 | Discharge Summary ---
Providers - Providers Date of Admission: 05/02/18 19:28 Attending physician: MONALISA RODRIGUEZ MD 05/02/18 22:44 Consult to Physician [CONS] Routine Comment: Consulting Provider: NENA MOSQUEDA Physician Instructions: Reason For Exam: esrd 05/03/18 07:13 Consult to Physician [CONS] Routine Comment: Consulting Provider: PHILIPP MAYNARD Physician Instructions: Reason For Exam: SVT resolved [facility] Reason for admission: sinus tachycardia Condition: Stable Hospital course: The patient is a 28-year-old male presenting with a chief complaint of palpitations. The patient states he was at hemodialysis receiving this treatment when he had approximately 30 minutes left. Patient states he notices heart rate became elevated in the 150s-160s. This was persistent so the patient was taken off of hemodialysis and eventually EMS was called. EMS had the patient perform vagal maneuvers with eventual break of SVT. Patient's heart rate normalized to the 90s after maneuvers. Patient denied ever having chest pain, shortness breath or dizziness during the palpitations. Patient states he has never been formally evaluated for SVT. Patient's HR was controlled. EF was normal in 2018. cardiology cleared him for discharge with the advice of [place] norvas, decrease toprol and start him on Cardizem. Disposition: [place]-01 TO HOME OR SELFCARE Time spent for discharge: 32 minutes - Discharge Diagnoses (1) Tachycardia Status: Acute (2) ESRD on hemodialysis Status: Chronic (3) HTN (hypertension) Status: Chronic Qualifiers: Hypertension type: essential hypertension Qualified Code(s): I10 - Essential (primary) hypertension Core Measure Documentation - Palliative Care Palliative Care/ Comfort Measures: Not Applicable - Core Measures Any of the following diagnoses?: none Exam - Physical Exam Narrative exam: Not in cardiopulmonary distress. The patient is obese. Vital signs as documented. Head exam is unremarkable. No scleral icterus . Neck is without jugular venous distension, thyromegaly, or carotid bruits. Lungs are clear to auscultation. Cardiac exam reveals regular rate and Rhythm. First and second heart sounds normal. No murmurs, rubs or gallops. Abdominal exam reveals normal bowel sounds, no masses, no organomegaly and no aortic enlargement. Extremities are nonedematous and both femoral and pedal pulses are normal. [employer]: Alert and oriented 3. No focal weakness. - Constitutional Vitals: Temp Pulse Resp BP Pulse Ox 98.2 F 90 16 189/79 99 05/03/18 11:00 05/03/18 15:45 05/03/18 11:00 05/03/18 15:45 05/03/18 10:00 Plan Activity: no restrictions Weight Bearing Status: Full Weight Bearing Diet: renal Follow up with: LEONELA [facility]FOREST MD JUAN [Primary Care Provider] - 3-5 Days Forms: Work/School Excuse Out Patient, Work/School Release Form Prescriptions: Metoprolol Xl [Metoprolol SUCCINATE ER TAB] 100 mg PO QHS #30 tablet dilTIAZem [Cardizem] 60 mg PO TID #90 tablet
[2018-05-03 15:53] LABS: Hepatitis B Surface Antigen Non-Reactive (Negative)
[2018-05-03 15:55] VITALS: BP 189/79
[2018-05-03] MEDS ORDERED: PAXIL PO SCH (22:00)
[2018-05-03] MEDS ORDERED: TOPROL XL PO SCH ×2 (22:00)
[2018-05-03] MEDS ORDERED: METOPROLOL SUCCINATE 200 MG PO SCH (22:00)
[2018-05-03] MEDS ORDERED: NORVASC PO SCH (22:00)
== END 2018-05-03 18:15 | disposition home or self-care (01) | DRG 308 ==
LOC: ED 16:19 → 4A 19:28
PROVIDERS: ADMIT Internal Medicine; ATTEND Internal Medicine
PROC: 5A1D70Z Performance of Urinary Filtration, Intermittent, Less than 6 Hours Per Day (ICD-10-PCS; principal; 2018-05-03)
DX: I47.1 Supraventricular tachycardia (principal); N18.6 End stage renal disease; I42.9 Cardiomyopathy, unspecified; I13.2 Hypertensive heart and chronic kidney disease with heart failure and with stage 5 chronic kidney disease, or end stage renal disease; E87.5 Hyperkalemia; I50.9 Heart failure, unspecified; F41.9 Anxiety disorder, unspecified; Z95.828 Presence of other vascular implants and grafts; Z87.891 Personal history of nicotine dependence; Z99.2 Dependence on renal dialysis
CPT/HCPCS: 36415; 71045; 80048; 80053; 80061; 80074; 83036; 83735; 84439; 84443; 84484; 85025; 93005; 93010; G0378; J1644; J7030